=== PATIENT | male | born 2005 | race African-American/Black ===

== ENCOUNTER 2025-03-11 13:58 | Emergency (ER) | payer SELFPAY ==
[~2025-03-11] VITALS: Ht 170.2 cm; Wt 59.0 kg
[2025-03-11 14:02] VITALS: O2SAT 99
[2025-03-11] MEDS: IBUPROFEN 600MG TABLET PO ONE (16:58)
[2025-03-11 18:18] LABS: INFLUENZA TYPE A Presumptive Negative (Pres. Neg.)
[2025-03-11 18:19] LABS: INFLUENZA TYPE B Presumptive Negative (Pres. Neg.); RESPIRATORY SYNCYTIAL VIRUS Not Detected (Not Detectd)
[2025-03-11] MEDS ORDERED: BENZ100C86 MT (18:34)
[2025-03-11] MEDS ORDERED: TOPUD MT (18:34)
[2025-03-11] MEDS ORDERED: IBUP-2437 MT (18:34)
[2025-03-11 18:39] VITALS: BP 122/76; PULSE 72; RESP 18; TEMP 37.1; O2SAT 99
== END 2025-03-11 18:39 | disposition home or self-care (01) ==
LOC: ER 13:58
DX: B34.9 Viral infection, unspecified (principal); M94.0 Chondrocostal junction syndrome [Tietze]; Z20.822 Contact with and (suspected) exposure to COVID-19
CPT/HCPCS: 71045; 87420; 87426; 87804; 93005; 99285